=== PATIENT | male | born 1990 | race Caucasian/White ===

== ENCOUNTER 2022-06-11 17:12 | Emergency (ER) | payer BC ==
[~2022-06-11] VITALS: Ht 177 cm; Wt 94.0 kg
--- NOTE | 2022-06-11 17:33 | ED Lower Extremity ---
General Chief Complaint: Lower Extremity Stated Complaint: L LEG PAIN History of Present Illness Date Seen by Provider: Jun 11, 2022 Time Seen by Provider: 17:21 Initial Comments 32 yr M is here with complaints of left lower leg rash which began today m prudence. Patient shaved his leg yesterday and had a few nicks. Today morning he woke up and his leg was red, slightly painful, and hot to the touch. Patient is unsure if he had a fever in the morning. Denies discharge, blisters, injury, pruritus, trauma. Allergies and Home Medications Patient Home Medication List Home Medication List Reviewed: Yes Review of Systems Constitutional: no symptoms reported EENTM: no symptoms reported Respiratory: no symptoms reported Cardiovascular: no symptoms reported Gastrointestinal: no symptoms reported Genitourinary: no symptoms reported Musculoskeletal: no symptoms reported Skin: change in color, rash Psychiatric/Neurological: No Symptoms Reported Physical Exam Vital Signs Capillary Refill : Height, Weight, BMI Height: '" Weight: lbs. oz. kg; BMI Method: General Appearance: WD/WN, no apparent distress HEENT: PERRL/EOMI Neck: full range of motion Cardiovascular: regular rate, rhythm Respiratory: lungs clear Legs: left leg normal range of motion, left leg no evidence of injury, left leg soft tissue tenderness, left leg swelling, left leg other (erythematous macular appearane of rash that is in the entire lower leg and crosses the midline. It is hot to touch) Knees: left knee non-tender, left knee normal inspection, left knee normal range of motion, left knee no evidence of injury Ankles: left ankle non-tender, left ankle normal inspection, left ankle normal range of motion Neurologic/Psychiatric: alert, oriented x 3 Skin: rash (left leg as documented above) Lymphatic: no adenopathy Progress/Results/Core Measures Progress Progress Note : Progress Note 1. LEFT LOWER LEG CELLULITIS: - Keflex 500mg tid for 10 days - Tylenol prn fever - Follow up with PCP in 3 days -The patient was seen in the ED, and treated appropriately to presentation at a specific point in time. Patient is informed that there is a possibility that disease and illness can evolve and change in acuity rapidly or slowly after patient is discharged from the ER. Precautionary advice given to the patient for immediate return to ER if symptoms worsen or do not resolve, and to seek emergency care sooner rather than later. Pt also advised on the importance of PCP follow up and compliance with management and follow up plan with PCP and/or specialist, as this is part of the management plan. Pt verbally expressed understanding. Departure Impression Primary Impression: Cellulitis of left lower extremity Disposition: HOME, SELF-CARE Condition: Stable Departure-Patient Inst. Referrals: NO,LOCAL PHYSICIAN (PCP/Family) Primary Care Physician Patient Instructions: Cellulitis (Skin Infection), Adult ED Add. Discharge Instructions: - Keflex 500mg tid for 10 days - Tylenol prn fever - Follow up with PCP in 3 days All discharge instructions reviewed with patient and/or family. Voiced understanding. Scripts Cephalexin (Cephalexin) 500 Mg Tablet 500 MG PO TID for 10 Days, #30 TAB Prov: ZARI LOPEZ MD 06/11/22 Work/School Note: Work Release Form Date Seen in the Emergency Department: Jun 11, 2022 Return to Work: Jun 13, 2022 Restrictions: No Restrictions ZARI LOPEZ MD Jun 11, 2022 17:33
[2022-06-11] MEDS ORDERED: CEPH500T PO (17:36)
[2022-06-11 18:40] VITALS: BP 148/76
== END 2022-06-11 17:45 | disposition home or self-care (01) ==
LOC: ER FS 17:14
DX: L03.116 Cellulitis of left lower limb (principal)
CPT/HCPCS: 99281